=== PATIENT | male | born 1955 | race Caucasian/White ===

== ENCOUNTER 2021-10-26 08:50 | Outpatient (CLI) | payer BC, SELFPAY ==
[2021-10-26 14:30] LABS: Chloride* 105 mmol/L (96-114)
[2021-10-26 14:31] LABS: Potassium* 4.2 mmol/L (3.6-5.1); Sodium* 139 mmol/L (135-149)
[2021-10-26 14:33] LABS: Estimated Glomerular Filt Rate 84 ml/min
[2021-10-26 14:34] LABS: Blood Urea Nitrogen* 20 mg/dL (7-30); Calcium* 8.8 mg/dL (8.4-10.6); Carbon Dioxide* 30 mmol/L (20-32); Glucose* 61 mg/dL (60-115)
[2021-10-26 14:50] LABS: Alanine Aminotransferase* 22 U/L (4-50)
== END 2021-10-26 08:51 | disposition home or self-care (01) ==
PROVIDERS: PCP Family Medicine; Visit Provider Family Medicine
DX: L40.50 Arthropathic psoriasis, unspecified (principal)
CPT/HCPCS: 80048; 84460

== ENCOUNTER 2022-01-12 13:44 | Outpatient (CLI) | payer BC, SELFPAY ==
[2022-01-12 15:16] LABS: Alanine Aminotransferase* 23 U/L (4-50); Estimated Glomerular Filt Rate 84 ml/min
== END 2022-01-12 13:45 | disposition home or self-care (01) ==
PROVIDERS: PCP Family Medicine; Visit Provider Family Medicine
DX: E03.9 Hypothyroidism, unspecified (principal); L40.50 Arthropathic psoriasis, unspecified
CPT/HCPCS: 82565; 84443; 84460

== ENCOUNTER 2022-02-15 06:35 | Day surgery (SDC) | payer BC, SELFPAY ==
[2022-02-15] VITALS (12 sets, daily range): BP systolic 111–145; BP diastolic 78–91; PULSE 59–79; RESP 16–20; TEMP 36.5–37.1; O2SAT 92–99; BMI 24.7
[2022-02-15] MEDS: LACTATED RINGERS 1000 ML 1,000 ML 100 ML IV ×2 (07:00→09:04)
[2022-02-15] MEDS: ETHYL CHLORIDE 1 APPLICATION 1 APPLIC TOPICAL (07:20)
[2022-02-15] MEDS: SODIUM CHLORIDE 0.9 % (FLUSH) 10 ML SYRINGE IVF (07:20)
[2022-02-15] MEDS: CEFAZOLIN 2 GM INJ IVP (08:05)
--- NOTE | 2022-02-15 08:49 | SUR.PREOP ---
0645: verified negative covid test done at home
[2022-02-15] MEDS: BUPIVACAINE 0.25% 30 ML INJECTION (09:09)
--- NOTE | 2022-02-15 09:36 | PM.GSPRC ---
Operative Note Date of procedure: 02/15/22 Type of Procedure: Laparoscopic bilateral inguinal hernia repair with mesh Procedure Description: After discussing the risks and benefits of the procedure, the patient signed informed consent.? The operative site was marked and the patient was brought to the operating room and placed on the operating table in supine position.? Care was taken to pad the patient's pressure points.?? The patient was then intubated by anesthesia.?? The operative site was then prepped and draped in the usual sterile fashion.? A time-out was then performed. A curvilinear incision was made below the umbilicus. Dissection was carried down to subcutaneous tissue until the anterior rectus fascia was encountered. This was incised off the midline to the right. The rectus muscle fibers were then retracted exposing the posterior fascia. A port with a dissecting balloon was then introduced into the pre-preperitoneal space. This was inflated under direct vision. The balloon was deflated, removed, and a 10 mm working port was placed. The space was insuflated and a 10 mm 30-degree scope was then advanced into the space. Two 5 mm ports were] placed in the midline under direct vision. Dissection began on the right side. Sergey's ligament and the pubic bone was exposed medially. Following this, dissection was carried out laterally. An indirect defect was noted. The sac was dissected free from the cord structures using a combination of sharp and blunt dissection. A large cord lipoma was also reduced. Hemostasis was excellent, however there was a small vessel going to the cord lipoma which was clipped between 2 clips and divided with a scissor. Once the sac was completely reduced, Attention was turned to the opposite side where an indirect defect was noted and dissection was completed in the same fashion. There was also large cord lipoma that was reduced. Then, two pieces of Bard 3DMax mesh for the each side was placed into the abdomen. They were positioned with the marker pointed medially. A Tacker was used to attach the mesh medially at Sergey's ligament and 1 tack laterally with care to avoid the epigastric vessels and stay above the inguinal ligament. The mesh overlapped in the midline slightly. Once this was completed the sacs were placed on top of the mesh and the preperitoneal space desufflated under direct vision. The ports were removed. The fascia from the infraumbilical port was closed with 0 Vicryl. The skin incisions were closed with absorbable subcuticular suture. Sterile dressings were then applied. The scrotum was examined to ensure that both testicles were down. Instrument sponge and needle counts were correct at the end of the case. ? The patient tolerated the procedure well. Findings: Bilateral indirect inguinal hernias with large cord lipomas Anesthesia: LAMARA Surgeon: Karla Thomson MD Estimated blood loss (mL): 5 Condition: stable Disposition: PACU
--- NOTE | 2022-02-15 09:58 | W.ANESCHARGE ---
Anesthesia Charges Start Date/Time Anesthesia Start Date: 02/15/22 Anesthesia Start Time: 07:49 Stop Date/Time Anesthesia Stop Date: 02/15/22 Anesthesia Stop Time: 09:58 Summary Emergency: No
--- NOTE | 2022-02-15 11:14 | W.ANESCHARGE ---
Anesthesia Charges Start Date/Time Anesthesia Start Date: 02/15/22 Anesthesia Start Time: 07:49 Stop Date/Time Anesthesia Stop Date: 02/15/22 Anesthesia Stop Time: 09:58 Summary Emergency: No
== END 2022-02-15 12:00 | disposition home or self-care (01) ==
PROVIDERS: PCP Family Medicine; Visit Provider Surgery
PROC: (CPT 49650; principal; 2022-02-15 07:45)
DX: K40.20 Bilateral inguinal hernia, without obstruction or gangrene, not specified as recurrent (principal)
CPT/HCPCS: 49650; 00830; 00860; C1781; J0690; J1100; J1170; J2250; J2405; J2704; J2710; J3010; J3490; J7120

== ENCOUNTER 2022-07-06 09:26 | Outpatient (CLI) | payer OTHER, SELFPAY | END 2022-07-06 09:27 | disposition home or self-care (01) | PROVIDERS: PCP Family Medicine; Visit Provider Family Medicine | DX: E03.9 Hypothyroidism, unspecified (principal); E78.5 Hyperlipidemia, unspecified; L40.50 Arthropathic psoriasis, unspecified | CPT/HCPCS: 80048; 84439; 84443; 84460 ==

== ENCOUNTER 2023-09-24 06:15 | Day surgery (SDC) | payer MEDICARE, BC, SELFPAY ==
[2023-09-24] VITALS (14 sets, daily range): BP systolic 126–158; BP diastolic 79–100; PULSE 49–60; RESP 14–16; TEMP 36.1–36.5; O2SAT 93–98; BMI 26.5
--- OUTSIDE RECORDS SUMMARY | 2023-09-24 06:20 | XMS_ITS | Clinical Summary ---
Author Organization [employer] [facility] Address [place], [place] [address] Care Team Providers Care Credit Support Counselor Name Role Phone Votel, Saad Burroughs MD Primary Care Provider + Allergies No known active allergies Medications Medication Sig Dispensed Refills Start Date End Date Status traZODone (DESYREL) 50 mg tablet 11/08/2022 Active levothyroxine (SYNTHROID) 150 mcg tablet 11/08/2022 Active latanoprost (XALATAN) 0.005 % ophthalmic solution INSTILL 1 DROP INTO BOTH EYES AT BEDTIME 06/18/2022 Active timoloL maleate (TIMOPTIC) 0.5 % ophthalmic solution INSTILL ONE DROP IN BOTH EYES EVERY MORNING 08/18/2022 Active adalimumab (Humira,CF,) 40 mg/0.4 mL injectionIndication s:Rheumatoid arthritis, seropositive (HC) Inject every 17 days 05/16/2023 Active citalopram (CELEXA) 20 mg tabletIndications:D epression, major, single episode, moderate (HC) Take 1.5 Tablets (30 mg) by mouth every morning. 135 Tablet 1 05/16/2023 Active atorvastatin (LIPITOR) 10 mg tabletIndications:E levated cholesterol TAKE 1 TABLET DAILY 90 Tablet 3 08/01/2023 Active gabapentin (NEURONTIN) 300 mg capsuleIndications: Restless leg syndrome Take 1-2 Capsules (300-600 mg) by mouth at bedtime. 60 Capsule 3 08/01/2023 Active ferrous sulfate 325 mg delayed release tabletIndications:O ther iron deficiency anemia Take 1 Tablet (325 mg) by mouth once daily with a meal. Take with 4 oz of OJ or Cola 90 Tablet 3 09/04/2023 Active polyethylene glycol-electrolyte (GOLYTELY) 236-22.74-6.74 -5.86 gram suspensionIndicatio ns:Encounter for screening colonoscopy Drink 2 liters the day before the procedure and 2 liters 6 hours prior to procedure. 4000 mL 10/25/2023 Active cephalexin (KEFLEX) 500 mg capsuleIndications: Wound infection Take 1 Capsule (500 mg) by mouth four times daily for 7 days. 28 Capsule 2023 09/18/2023 Active Problems Problem Noted Date Diagnosed Date Rheumatoid arthritis 09/20/2023 Mixed hyperlipidemia 09/20/2023 MDD (major depressive disorder), single episode, mild 09/20/2023 RLS (restless legs syndrome) 09/20/2023 Hypothyroidism (acquired) 09/20/2023 Primary open angle glaucoma (POAG) of both eyes 09/20/2023 Encounters Date Type Department Care Team Description 09/20/2023 8:50 AM CDT Preop Visit [address] [address] Alicia Ferrera PA Preoperative Exam ([facility]-Dr. Nunez-bump on head-09/24/23) 09/20/2023 Travel 09/16/[address] [address] Julita Nunez MD 2023 3:00 PM CDT Office Visit [address] [address] Julita Nunez MD Consult (Scalp lesion) 2023 Travel 09/04/2023 10:50 AM CDT Office Visit [address] [address] RenelSaad MD Concerns (Painful bump on head, keeps coming back, x 3 months) 09/04/[address] [address] Oscar Lott MD Referral (appointment) 09/04/2023 Travel 08/16/2023 7:30 AM CDT Nurse/Clinic Staff Only [address] [place] [address] Testing (HST Download ) 08/15/2023 1:45 PM CDT Nurse/Clinic Staff Only [facility] [address] [address] Testing (HST Setup) 08/15/2023 Procedure Only [facility] [place] [address] Pacheco Cerda MD Results (HST) 08/15/2023 Travel 08/12/2023 Telephone [facility] [place] [address] Pacheco Cerda MD Questions (conflict with current appointment time 08/14) 08/01/2023 8:30 AM CDT Office Visit [facility] [place] [address] Pacheco Cerda MD Sleep Consult 08/01/2023 Travel 07/31/2023 Refill [facility] [place] [address] Saad Hernandez MD Refill Request (Atorvastatin) from Last 3 Months Immunizations Name Administration Dates Next Due COVID-19 Vaccine Spikevax (M oderna 50mcg/0.5mL) 12YO+ [id number] Formula PF 12/09/2022 Influenza Virus, Unspecified 12/22/2020 Influenza, High-dose Quadrivalent Inactivated Influenza, IIV4 01/02/2022 Pneumococcal Conj 20-valent (Prevnar 20) 023 RSV, Bivalent Vaccine Recons tituted (Abrysvo 120MCG/0.5mL) 12/09/2022 Tdap 05/18/2022 Zoster (Shingrix-RZV, recombinant) 11/07/2018, Social History Tobacco Use Types Packs/Day Years Used Date Smoking Tobacco: Never Smokeless Tobacco: Never Tobacco Cessation:Counseling Given: Yes Alcohol Use Standard Drinks/Week Comments Yes 0 (1 standard drink = 0.6 oz pur e alcohol) occ PHQ-2 Answer Date Recorded PHQ-2 TOTAL SCORE 3 05/16/2023 Social Connections Answer Date Recorded Frequency of Communication with Friends and Fami ly 0 09/20/2023 Financial Resource Strain Answer Date R ecorded Difficulty of Paying Living Expenses 3 09/20/2023 Difficulty of Paying Living Expenses Not on file 09/20/2023 Food Insecurity Answer Date Recorded Worried About Running Out of Food in the Last Ye ar 1 09/20/2023 Transportation Needs Answer Date Record ed Lack of Transportation (Medical) 1 09/20/2023 Housing Stability Answer Date Recorded Unable to Pay for Housing in the Last Year 1 09/20/2023 Sex and Gender Information Value Date Recorded Sex Assigned at Not on file Gender Identity Not on file Sexual Orientation Not on file Obstetrics History Last Filed Vital Signs Vital Sign Reading Time Taken Comments Blood Pressure 137/83 09/20/2023 8:53 AM CDT Pulse 53 09/20/2023 8:53 AM CDT Temperature 36.7 ??C (98 ??F) 05/16/2023 3:18 PM CDT Respiratory Rate - - Oxygen Saturation 95% 09/20/2023 8:53 AM CDT Inhaled Oxygen Concentration - - Weight 81.6 kg (180 lb) 09/20/2023 8:53 AM CDT Height 177.5 cm (5' 9.88) 09/20/2023 8:53 AM CD T Body Mass Index 25.91 09/20/2023 8:53 AM CDT Plan of Treatment Upcoming Encounters Date Type Department Care Team (Late st Contact Info) Description 09/24/2023 8:00 AM CDT Office Visit [facility] [address] [place] [address] Julita Nunez MD [address] [place] [address] 10/29/2023 9:30 AM CDT Office Visit [facility] [address] [place] [address] Benson Dickerson MD [address] [place] [address] 11/06/2023 9:00 AM CDT Office Visit [address] [place] [address] Pacheco Cerda MD [address] [place] [address] 11/12/2023 8:20 AM CDT Office Visit [facility] [address] [place] [address] Saad Hernandez MD [address] [place] [address] 11/29/2023 11:45 AM CDT Office Visit [facility] [address] [place] [phone] Oscar Lott MD [address] [place] [address] Health Maintenance Due Date Last Done Comments Hepatitis C screening for ag e 18-79 09/12/1973 Colonoscopy through age 75 2002 COVID-19 vaccine series ( season) 2023 12/09/2022, 01/02/2022, 07/06/2021, Additional history exists Influenza for age 65+ 11/03/2023 12/09/2022 , 01/02/2022, 12/22/2020 Depression screening for age 12+ 05/15/2024 05/16/19 Medicare Wellness for age 65+ 05/16/2024 05/16/2023 BMI (ht and wt on same day) for age 18+ 09/19/2024 09/20/2023, 09/04/2023, 08/01/2023, Additional history exists Lipids for age 45-75 05/15/2028 05/16/2023 Tetanus booster 05/18/2032 05/18/2022 Zoster (shingles) series for age 50+ Completed 11/07/2018, 06/27/2018 Tdap Completed 05/18/2022 Pneumococcal series for age 65+ Completed Procedures Procedure Name Priority Date/Time Associated Diagnosis Comments BASIC METABOLIC PANEL Routine 09/20/2023 9:42 AM CDT Pre-op exam HEMOGLOBIN Routine 09/20/2023 9:42 AM CDT Pre-op exam PATH TISSUE EXAM Routine 2023 3:27 PM CDT Neoplasm of uncertain behavior HOME SLEEP TEST TYPE 3 PORTABLE Routine 08/15/2023 11:59 PM CDT AMELIA (obstructive sleep apnea) SEDIMENTATION RATE Routine 08/01/2023 9: 36 AM CDT Psoriatic arthritis (HC) C-REACTIVE PROTEIN Routine 08/01/2023 9: 36 AM CDT Psoriatic arthritis (HC) IRON PLUS IRON BINDING CAP Routine 08/01/2023 9:36 AM CDT Low iron LIPID PANEL W REFLEX MEASURED LDL Routine 05/16/2023 4:21 PM CDT Screening cholesterol level from Last 3 Months or Most Recently Relevant to Health Maintenance Results * HEMOGLOBIN (09/20/2023 9:42 AM CDT) HEMOGLOBIN 14.7 13.5 - 17.5 g/dL 09/20/2023 9:46 AM CDT [facility] MCV 88 80 - 100 fL 09/20/2023 9:46 AM CDT [facility] Blood BLOOD SPECIMEN / Unknown Venipuncture / Unknown 09/20/2023 9:42 AM CDT 09/20/2023 9:43 AM CDT Alicia ELLIS HEMATOLOGY [facility] [address] [place] [address], * (ABNORMAL) BASIC METABOLIC PANEL (09/20/2023 9:42 AM CDT) SODIUM 141 136 - 145 mmol/L 09/20/2023 3:50 PM CDT [facility] POTASSIUM 4.8 3.5 - 5.1 mmol/L 09/20/2023 3:50 PM CDT [facility] CHLORIDE 104 98 - 107 mmol/L 09/20/2023 3:50 PM CDT [facility] CO2,TOTAL 28 22 - 29 mmol/L 09/20/2023 3:50 PM CDT [facility] ANION GAP 9 5 - 18 09/20/2023 3:50 PM CDT [facility] GLUCOSE 93 70 - 99 mg/dL 09/20/2023 3:50 PM CDT [facility] CALCIUM 8.8 8.8 - 10.2 mg/dL 09/20/2023 3:50 PM CDT [facility] BUN 14 8 - 23 mg/dL 09/20/2023 3:50 PM CDT [facility] CREATININE 1.01 0.70 - 1.20 mg/dL 09/20/2023 3:50 PM CDT [facility] BUN/CREAT RATIO 14 10 - 20 3:50 PM CDT [facility] eGFR 82(L) >90 mL/min/1.7 3m2 09/20/2023 3:50 PM CDT [facility] Comment:As of 2021, eG FR is calculated by the CKD-EPI creatinine equation without race adjustment. ??eGFR can be influenced by muscle mass, exercise, and diet. ??The reported eGFR is an estimation only and is only applicable if the renal function is stable. Blood BLOOD SPECIMEN / Unknown Venipuncture / Unknown 09/20/2023 9:42 AM CDT 09/20/2023 9:43 AM CDT Alicia ELLIS [facility] [address] [place] [address], * PATH TISSUE EXAM (2023 3:27 PM CDT) Case Report Pathology Report ?Case: [id number] ? Authorizing Provider: ??Julita Nunez MD ??Collected: ? 2023 1527 ? Ordering Location: ? [facility] ?? Received: ?2023 1549 ? Clinic ? Pathologist: ? Jose Esposito MD ? Specimen: ?Scalp, punch biopsy scalp lesion ? 09/13/2023 1:46 PM CDT [facility]ORAT[facility]-C ENTRAL LABORATORY Final Diagnosis SKIN, SCALP, BIOPSY: 1. 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 b. Perineural invasion: Absent ?? c. Margin status: POSITIVE ??(deep and peripheral) 09/13/2023 1:46 PM CDT [facility] LABORATORY-C ENTRAL LABORATORY Clinical Information Punch biopsy scalp lesion. 09/13/2023 1:46 PM CDT [facility] Gross Description A) Received in formalin, labeled with the patient's name and scalp lesion punch BX, is a 0.3 x 0.3 cm skin punch biopsy. The skin surface is remarkable for a 0.1 x 0.1 cm perez-white flat lesion. ??The specimen is inked green, left intact and entirely submitted in one cassette. ??Also submitted is a 0.7 x 0.3 x 0.2 cm aggregate of perez-white to red-brown friable tissue which is entirely submitted in a second cassette. EVM 09/12/2023 ?? 09/13/2023 1:46 PM CDT [facility] Microscopic Description The final diagnosis is based on microscopic examination of appropriate sections of all specimens. Sections show a hyperkeratotic surface epithelium with significant cytologic atypia, marked lack of polarization, and mitotic activity. ??Multiple deeper levels were utilized for evaluation. ??There is invasion into the underlying connective tissue. The presence of ??green ink is confirmed on tissue sections. 09/13/2023 1:46 PM CDT [facility] Additional Information Interpreted at [facility] - [address] [place] [address] [address] [address] 09/13/2023 1:46 PM CDT [facility] Other (Scalp) Non-Blood / Unknown 2023 3:27 PM CDT 2023 3:49 PM CDT Julita Nunez MD PATHOLOGY/CYTOLO GY [facility] [address] [place] [address], * HOME SLEEP TEST TYPE 3 PORTABLE (08/15/2023 11:59 PM CDT) Narrative Pacheco Cerda MD - 08/15/2023 11:59 PM CDT Pacheco Cerda MD ? 08/22/2023 10:59 AM Home Sleep Test Name: ??Truman Brock Location: ??[facility] Study notes: This is a single night home sleep apnea test. The study is performed in the context of a clinical suspicion for sleep apnea. Truman Brock ( 1955) is studied using a T3 Device using nasal pressure transducer, thoracoabdominal respiratory impedance plethysmography belts, pulse oximetry, snore microphone and actigraphy for body position. ??The study is scored by a RPSGT and interpreted by a Diplomate of the [place] [employer]. ??An [id number] review of the data has been performed by the interpreting physician. Scored following the most current version of the AASM Manual for the Scoring of Sleep and Associated Events. Respiratory Event Index (SHANAE) ??Oxygen Desaturation Index (DIANE) REI4% ??5.9 ??ODI4%: ??5.6 Supine SHANAE: 16.5 ??ODI3%: ??5.7 Lateral SHANAE: 0.4 ??Zan Saturation 84 % ?? Time Below 88% 9.5 ??minutes ?? Weight: Wt Readings from Last 1 Encounters: 08/01/23 82.4 kg (181 lb 9.6 oz) Other data: Recording Duration: 480.0 minutes Time in Bed: ??473.4 minutes Estimated sleep efficiency [%]: 98 % Oximeter Quality: 99.3 % Flow Quality: 100.0 % RIP Quality: 100.0 % Supine time: 160.2 minutes Average SpO2: 93.1 % Pulse Average: 57.7 bpm Additional Comments: None IMPRESSION: Obstructive Sleep Apnea (327.23, G47.33) RECOMMENDATIONS: - Mild sleep apnea is discovered- it is positional with all events on his back. ??If there is low clinical suspicion of sleep apnea, this could be a false positive. ??Polysomnography could be considered. - Mild sleep apnea only needs treatment in the presence of attributable sleepiness. ??In the absence of symptoms, treatment may not be indicated. ??Clinical correlation is recommended. - Treatment options for mild sleep apnea include CPAP, a mandibular advancement device, lifestyle modifications such as weight loss, sedative/alcohol avoidance, avoiding supine sleep and surgical therapies can be considered in highly selected patients. - Treatment for obstructive sleep apnea is recommended and CPAP would generally be considered first-line therapy for this severity of sleep apnea. ??Consider auto-titrating CPAP 5-20 cm. - Follow-up with a provider to discuss results is recommended. - Patients should be advised to avoid critical tasks, such as driving, whenever drowsy. - Patients should try to achieve at least 7-8 hours of sleep on a consistent basis. - The SHANAE is a surrogate for AHI. ??For reimbursement and/or prior authorization purposes, it would be appropriate to list the SHANAE as an AHI when the latter is accepted, but not the former. Pacheco Jangomate, Board of Sleep Medicine Recording Information Recording Date: 08/15/2023 ??Analysis Start Time: 9:06 PM Recording Tags: ?? Analysis Stop Time: 4:59 AM Device Type: T3S ??Analysis Duration (TRT): 7h 53m ?? Est. Total Sleep Time: 7h 51m Position and Analysis Time Duration Percentage Supine (in TST): 160.2 m 34 % Non-Supine (in TST): 311.3 m 66 % Upright (in TRT): 1.8 m 0.4 % Movement (in TST): 9.4 m 2 % Invalid Data (Excluded): 0 m 0 % Respiratory Indices Index ?? Total ??Supine ??Non-supine Count Apneas + Hypopneas (AH): 5.9 /h 16.5 /h 0.4 /h 46 Apneas: 2.2 /h 5.6 /h 0.4 /h 17 Obstructive (OA): 2.2 /h 5.6 /h 0.4 /h 17 Mixed (MA): 0 /h 0 /h 0 /h 0 Central (CA): 0 /h 0 /h 0 /h 0 Hypopneas: ??3.7 /h 10.9 /h 0 /h 29 Respiration Rate (per m): 16.3 /m 16.8 /m 16.1 /m ?? Percentage of Sleep Duration Snore: 35.2 % 56.6 % 24.2 % 166 m Flow Limitation: 0 % 0 % 0 % 0 m Average Snore Volume 67.5 dB Percent of time greater than 80dB: Percent of 12 % Oxygen Saturation (SpO2) Total Supine ?Non-supine Oxygen Desaturation Index (DIANE): 5.7 /h ??15.7 /h 0.6 /h Average SpO2: 93.1 % ??92.3 % 93.5 % Minimum SpO2: 84 % ??84 % 85 % SpO2 Duration < 90% 3.2 % (15.2m) 9.3 % 0.1 % SpO2 Duration ? 88% 2 % (9.5m) 5.8 % 0.1 % Pulse in TST ?? Quality ?? Average: 57.7 bpm Oximeter: 99.3 % Maximum: 101 bpm Nasal Cannula: 100 % Minimum: 48 bpm Abdomen RIP: 100 % Duration < 40 bpm: 0 m Thorax RIP: 100 % Duration > 100 bpm: 0 m ? Pacheco Cerda MD SLEEP CENTER * SEDIMENTATION RATE (08/01/2023 9:36 AM CDT) SEDIMENTATION RATE 6 <20 mm/hr 2023 4:09 PM CDT [facility] Blood BLOOD SPECIMEN / Unknown Venipuncture / Unknown 08/01/2023 9:36 AM CDT 08/01/2023 9:37 AM CDT Pacheco Cerda MD HEMATOLOGY [facility] [address] [place] [address], * (ABNORMAL) IRON PLUS IRON BINDING CAP (08/01/2023 9:36 AM CDT) IRON 52(L) 61 - 157 ug/dL 08/01/2023 7:13 PM CDT [facility] UIBC (UNSATURATED) 318 112 - 347 ug/dL 08/01/2023 7:13 PM CDT [facility] IRON BINDING CAPACITY 370 250 - 400 ug/dL 08/01/2023 7:13 PM CDT [facility] IRON,% SATURATION 14 14 - 50 % 08/01/2023 7:13 PM CDT [facility] Blood BLOOD SPECIMEN / Unknown Venipuncture / Unknown 08/01/2023 9:36 AM CDT 08/01/2023 9:37 AM CDT Pacheco Cerda MD CHEMISTRY Performing Organization Address City/[facility]/ZIP Co de Phone Number [facility] [address] [place] [address], * C-REACTIVE PROTEIN (08/01/2023 9:36 AM CDT) C-REACTIVE PROTEIN <0.3 <0.5 mg/dL 08/01/2023 7:14 PM CDT [facility] Blood BLOOD SPECIMEN / Unknown Venipuncture / Unknown 08/01/2023 9:36 AM CDT 08/01/2023 9:37 AM CDT Pacheco Cerda MD CHEMISTRY Performing Organization Address [facility] Co de Phone Number [facility] [address] [place] [address], * LIPID PANEL W REFLEX MEASURED LDL (05/16/2023 4:21 PM CDT) CHOLESTEROL,TOTAL 155 100 - 199 mg/dL 05/17/2023 2:57 PM CDT [facility] Comment: Cholesterol, Total Reference Ranges Desirable <200 mg/dL Borderline 200-239 mg/dL High >=240 mg/dL TRIGLYCERIDES 57 <150 mg/dL 05/17/2023 2:57 PM CDT [facility] HDL CHOLESTEROL 71 >40 mg/dL 2:57 PM CDT [facility] NON-HDL CHOLESTEROL 84 <145 mg/dl 05/17/2023 2:57 PM CDT [facility] CHOL/HDL RATIO 2.18 <4.50 05/17/2023 2:57 PM CDT [facility] LDL CHOLESTEROL 73 <=130 mg/dL 05/17/2023 2:57 PM CDT [facility] VLDL CHOLESTEROL 11 <=30 mg/dL 05/17/2023 2:57 PM CDT [facility] PROVIDER ORDERED STATUS RANDOM 05/17/2023 2:57 PM CDT [facility] Blood BLOOD SPECIMEN / Unknown Venipuncture / Unknown 05/16/2023 4:21 PM CDT 05/16/2023 4:22 PM CDT Saad Hernandez MD CHEMISTRY [facility] [address] [place] [id number], from Last 3 Months or Most Recently Relevant to Health Maintenance Care Teams Credit Support Counselor Relationship Specialty Start Date End Date Saad Hernandez MD [address] [place] [address] PCP - General Family Practice 08/01/23
[2023-09-24] MEDS: LACTATED RINGERS 1000 ML 1,000 ML 100 ML IV (06:45)
[2023-09-24] MEDS: SODIUM CHLORIDE 0.9 % (FLUSH) 10 ML SYRINGE IVF (06:45)
[2023-09-24] MEDS: CEFAZOLIN 2 GM INJ IVP (07:58)
--- NOTE | 2023-09-24 08:19 | W.ANESCHARGE ---
Anesthesia Charges Start Date/Time Anesthesia Start Date: 09/24/23 Anesthesia Start Time: 07:42 Stop Date/Time Anesthesia Stop Date: 09/24/23 Anesthesia Stop Time: 10:39
[2023-09-24] MEDS: BUPIVACAINE 0.25% 30 ML 10 ML INJECTION (09:54)
--- NOTE | 2023-09-24 10:44 | W.ANESCHARGE ---
Anesthesia Charges Start Date/Time Anesthesia Start Date: 09/24/23 Anesthesia Start Time: 07:42 Stop Date/Time Anesthesia Stop Date: 09/24/23 Anesthesia Stop Time: 10:39
[2023-09-24] MEDS: LACTATED RINGERS 1000 ML 1,000 ML 50 ML IV (10:54)
[2023-09-24] MEDS: ACETAMINOPHEN 325 MG TABLET 650 MG PO (12:12)
--- NOTE | 2023-09-24 12:26 | P.GSOP_ITS ---
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 Wide local excision invasive squamous cell carcinoma of the scalp 2. Full-thickness skin graft Indications: Patient is a 68-year-old male who presented to clinic with his a large protrudin g lesion of the scalp. A biopsy was obtained with confirmed invasive squamous cell carcinoma. Recommendations were for wide local excision. Risks and benefits of the procedure were discussed at length with the patient. Risks included, but were not limited to: Bleeding, infection, risk of damage to surrounding structures and possible need for additional procedures in the setting of positive margins. Additionally, I reviewed with the patient the risk of incision dehiscence resulting in a wound, as well as the possible need of a skin graft for closure. All questions and concerns were addressed with patient agreeing to proceed. Procedure Description: After discussing the risks and benefits of the procedure, the patient signed informed consent.? The operative site was marked and the patient was brought to the operating room and placed on the operating table in supine position.? Care was taken to pad the patient's pressure points.?? The patient was then intubated by anesthesia.?? The operative site was then prepped and draped in the usual sterile fashion.? A time-out was then performed. The protruding squamous cell carcinoma was present on top of the scalp and measured 3 cm in diameter. A ruler was used to racheal out 5 mm margins circumferentially. A circular incision was made around the lesion with a 15 blade scalpel. Dissection was carried down to subcutaneous tissue. The lesion was removed in its entirety and included a rim of normal appearing tissue. Hemostasis was assured with electrocautery. The resulting circular defect measured 5 cm in diameter. Due to the size of the defect a combined V incision was created. This consisted of incising a V shape at 45 degrees of angulation medial and lateral along the transverse axis. The surrounding skin edges were undermined circumferentially approximately 5 cm. All bleeding was controlled with cautery and pressure. The tissue was very difficult to mobilize due to d ecreased elasticity of the dermis. The incision was then closed in layers with deep 2-0 Vicryl interrupted stitches. The skin edges were brought together with running 2 0 nylon suture. Due to tension on the incision the central aspect was unable to be closed completely, so the decision was made for a full-thickness skin graft. The resulting defect measured 2 x 3 cm in size. An incision was marked posterior to the right ear. Using a 15 blade scalpel a 4 cm elliptical piece of tissue was excised. The epidermis, dermis and a small amount of underlying subcutaneous fat was harvested. The incision was then closed in layers with interrupted 3 0 Vicryl and running 4-0 Monocryl stitch. Steri-Strips were placed over the incision site. The skin graft was dissected further on the back table with sharp removal of all underlying subcutaneous fat. The graft was meshed in several areas with a scalpel to allow for adequate drainage. The skin was placed over the scalp wound and secured in place circumferentially with interrupted 4-0 chromic. The graft covered the entire defect. A few interrupted 4-0 chromic sutures were used to secure the graft to the wound bed. A pressure dressing was then created with Xeroform, Hydreafera blue and a 4x4 dressing. ? The patient was then woken and transported to the recovery area in stable condition. ? The patient tolerated the procedure well. Findings: 3 cm protruding lesion of the scalp, consistent with invasive squamous cell carcinoma. Wide local excision with closure via combined V incision and full- thickness skin graft. Anesthesia: GETA and local Surgeon: Julita Nunez MD Estimated blood loss (mL): 50 Additional Specimen Information: Scalp lesion. Condition: stable Disposition: PACU
--- NOTE | 2023-09-24 12:37 | SUR.PHASEII ---
Before discharge patient's dressing peeling up around edges again from PACU reinforcement. Surgeon notified. Non sterile dressing change by Yessenia Brito RN done in SDS before discharge.
== END 2023-09-24 12:35 | disposition home or self-care (01) ==
PROVIDERS: PCP Family Medicine; Visit Provider Surgery
PROC: (CPT 11623; principal; 2023-09-24 07:30)
DX: C44.42 Squamous cell carcinoma of skin of scalp and neck (principal)
CPT/HCPCS: 11623; 15220; 00300; 88305; A9270; J0665; J0690; J1100; J1885; J2405; J2704; J3010; J7120

== ENCOUNTER 2023-11-29 11:39 | Outpatient (CLI) | payer MEDICARE, BC, SELFPAY ==
--- OUTSIDE RECORDS SUMMARY | 2023-11-29 11:42 | XMS_ITS | Clinical Summary ---
Author Organization [facility] Address [place], [place] [address] Care Team Providers Care Slot Tag Inserter Name Role Phone Votel, Saad Burroughs MD Primary Care Provider + Allergies No known active allergies Medications Medication Sig Dispensed Refills Start Date End Date Status traZODone (DESYREL) 50 mg tablet 11/08/2022 Active latanoprost (XALATAN) 0.005 % ophthalmic solution INSTILL 1 DROP INTO BOTH EYES AT BEDTIME 06/18/2022 Active timoloL maleate (TIMOPTIC) 0.5 % ophthalmic solution INSTILL ONE DROP IN BOTH EYES EVERY MORNING 08/18/2022 Active adalimumab (Humira,CF,) 40 mg/0.4 mL injectionIndications :Rheumatoid arthritis, seropositive (HC) Inject every 17 days 05/16/2023 Active citalopram (CELEXA) 20 mg tabletIndications:De pression, major, single episode, moderate (HC) Take 1.5 Tablets (30 mg) by mouth every morning. 135 Tablet 1 05/16/2023 Active atorvastatin (LIPITOR) 10 mg tabletIndications:El evated cholesterol TAKE 1 TABLET DAILY 90 Tablet 3 08/01/2023 Active gabapentin (NEURONTIN) 300 mg capsuleIndications:R estless leg syndrome Take 1-2 Capsules (300-600 mg) by mouth at bedtime. 60 Capsule 3 08/01/2023 Active ferrous sulfate 325 mg delayed release tabletIndications:Ot her iron deficiency anemia Take 1 Tablet (325 mg) by mouth once daily with a meal. Take with 4 oz of OJ or Cola 90 Tablet 3 09/04/2023 Active polyethylene glycol-electrolyte (GOLYTELY) 236-22.74-6.74 -5.86 gram suspensionIndication s:Encounter for screening colonoscopy Drink 2 liters the day before the procedure and 2 liters 6 hours prior to procedure. 4000 mL 10/25/2023 Active levothyroxine (SYNTHROID) 150 mcg tabletIndications:Hy pothyroidism (acquired) Take 1 Tablet (150 mcg) by mouth once daily. 90 Tablet 1 09/30/2023 Active CPAPIndications:AMELIA (obstructive sleep apnea) RESMED CPAP (E0601) machine for home use at pressure: 5-15cmw, Choice of mask (A7030 or A7034) w/full face cushion (A7031) x1/mo, nasal cushion (A7032) x2/mo, or nasal pillows (A7033) x 2/mo; Length of Need: 99 months; Frequency of use: Daily 1 Each 11 11/07/2023 Active fluorouracil (Efudex) 5 % creamIndications:Ski n cancer,Actinic keratosis Apply topically to affected area(s) two times daily. 40 g 1 11/26/2023 Active Active Problems Problem Noted Date Diagnosed Date Skin cancer 11/26/2023 Overview (11/26/2023): 09/11/23: SKIN, SCALP, INVASIVE SQUAMOUS CELL CARCINOMA: Excised by general surgery on 09/24/23 History of psoriasis 11/25/2023 intermediate current use of immunosuppressive drug 11/25/2023 AMELIA 08/15/2023 AHI- 6 11/06/2023 Mixed hyperlipidemia 09/20/2023 MDD (major depressive disorder), single episode, mild 09/20/2023 RLS (restless legs syndrome) 09/20/2023 Hypothyroidism (acquired) 09/20/2023 Primary open angle glaucoma (POAG) of both eyes 09/20/2023 Psoriatic arthritis Resolved Problems Problem Noted Date Diagnosed Date Resolved Date Rheumatoid arthritis 09/20/2023 024 Rheumatoid arthritis 024 Psoriatic arthritis 11/12/19 Encounters Date Type Department Care Team Description 11/26/2023 2:10 PM CDT Office Visit [facility] [address] [address] Breanna Gilmore PA Derm Problem 11/26/2023 Travel 11/25/2023 11:50 AM CDT Ancillary Procedure [facility] [address] [facility] [address] [place] [address] 11/25/2023 11:45 AM CDT Ancillary Procedure [facility] [address] [facility] [address] [place] [address] 11/25/2023 10:30 AM CDT Office Visit [facility] [address] [place] [address] Nicolas Zhao MD Consult 11/25/2023 Travel 11/15/2023 Orders Only [facility] [address] [place] [address] Oscar Lott MD <No scans attached> 11/12/2023 8:20 AM CDT Office Visit [facility] [address] [place] [address] Saad Hernandez MD Preoperative Exam (Colonoscopy, [place], 11/29/23, [place]) 11/12/2023 Travel 11/06/2023 9:00 AM CDT Office Visit [facility] [address] [place] [address] Pacheco Cerda MD Sleep Follow-up 11/06/2023 Travel 11/03/2023 Travel 10/30/2023 2:00 PM CDT Office Visit [facility] [address] [place] [address] Julita Nunez MD Post-op (Scalp lesion with skin graft) 10/30/2023 Travel 09/27/2023 Refill [facility] [address] [place] [address] Saad Hernandez MD Refill Request (Levothyroxine) 09/24/2023 8:00 AM CDT Office Visit [facility] [address] [place] [address] Julita Nunez MD 09/24/2023 Orders Only [facility] Scanner 1 scan: (1-Ord) KAPAA, WIDE LOCAL EXCISION INVASIVE SQUAMOUS CELL CARCINOMA OF SCALP, 09/24/2023 09/24/2023 Lab Requisition [facility] [phone] Unknown, Doctor 09/20/2023 8:50 AM CDT Preop Visit [facility] [address] [place] [address] Alicia Ferrera PA Preoperative Exam ([facility]-Dr. Nunez-bump on head-09/24/23) 09/20/2023 Travel 09/16/2023 Telephone [facility] [address] [place] [address] Julita Nunez MD 2023 3:00 PM CDT Office Visit [facility] [address] [place] [address] Julita Nunez MD Consult (Scalp lesion) 2023 Travel 09/04/2023 10:50 AM CDT Office Visit [facility] [address] [place] [address] Saad Hernandez MD Concerns (Painful bump on head, keeps coming back, x 3 months) 09/04/2023 Telephone [facility] [address] [place] [address] Oscar Lott MD Referral (appointment) 09/04/2023 Travel from Last 3 Months Immunizations Name Administration Dates Next Due COVID-19 VACCINE SPIKEVAX (M ODERNA 50MCG/0.5ML) 12YO+ PFS 12/09/2022 Influenza Virus, Unspecified 12/22/2020 Influenza, High-dose [...] Sign Reading Time Taken Comments Blood Pressure 110/70 11/25/2023 10:28 AM CDT Pulse 51 11/25/2023 10:28 AM CDT Temperature 36.7 ??C (98 ??F) 11/12/2023 8:26 AM CDT Respiratory Rate - - Oxygen Saturation 98% 11/25/2023 10:28 AM CDT Inhaled Oxygen Concentration - - Weight 81.8 kg (180 lb 4.8 oz) 11/25/2023 10:28 AM CDT Height 177.8 cm (5' 10) 11/25/2023 10:28 AM CDT Body Mass Index 25.87 11/25/2023 10:28 AM CDT Plan of Treatment Upcoming Encounters Date Type Department Care Team (Late st Contact Info) Description 11/29/2023 11:45 AM CDT Office Visit [facility] [address] [place] [phone] Oscar Lott MD [address] [place] [address] Arrived 03/02/2024 8:50 AM ELECTRICAL ENGINEER Office Visit [facility] [address] [place] [address] [place] [address] [place] [address] [place] [address] 03/24/2024 9:30 AM ELECTRICAL ENGINEER Office Visit [facility] [address] [place], [place] [id number] [place] [address] [place] [address] [place] [address] Health Maintenance Due Date Last Done Comments Colonoscopy through age 75 2002 COVID-19 vaccine series (2023- season) 2023 12/09/2022, 01/02/2022, 07/06/2021, Additional history exists Influenza for age 65+ 11/03/2023 12/09/2022 , 01/02/2022, 12/22/2020 Depression screening for age 12+ 05/15/2024 05/16/19 Medicare Wellness for age 65+ 05/16/2024 05/16/2023 BMI (ht and wt on same day) for age 18+ 11/24/2024 11/25/2023, 11/12/2023, 11/06/2023, Additional history exists Lipids for age 45-75 05/15/2028 05/16/2023 Tetanus booster 05/18/2032 05/18/2022 Zoster (shingles) series for age 50+ Completed 11/07/2018, 06/27/2018 Tdap Completed 05/18/2022 Pneumococcal series for age 65+ Completed Hepatitis C screening for ag e 18-79 Completed 11/25/2023 Procedures Procedure Name Priority Date/Time Associated Diagnosis Comments XR HAND 3 VIEWS BILATERAL Routine 11/25/2023 11:53 AM CDT Psoriatic arthritis (HC) History of psoriasis XR FOOT 2 VIEWS STANDING BILATERAL Routine 11/25/2023 11:48 AM CDT Psoriatic arthritis (HC) CBC WITH AUTO DIFFERENTIAL Routine 11/25/2023 12:00 AM CDT ANTI HBC Routine 11/25/2023 12:00 AM CDT Psoriatic arthritis (HC) long term acute care registered nurse current use of immunosuppressive drug Encounter for screening for other viral diseases HBSAG (HBS) Routine 11/25/2023 12:00 AM CDT Psoriatic arthritis (HC) long term acute care registered nurse current use of immunosuppressive drug Encounter for screening for other viral diseases ANTI HCV Routine 11/25/2023 12:00 AM CDT Psoriatic arthritis (HC) long term acute care registered nurse current use of immunosuppressive drug HEPATITIS B CORE ANTIBODY (IGM) (QUEST) Routine 11/25/2023 12:00 AM CDT Psoriatic arthritis (HC) long term acute care registered nurse current use of immunosuppressive drug CYCLIC CITRULLINE PEPTIDE Routine 11/25/2023 12:00 AM CDT Psoriatic arthritis (HC) RA QUANTITATIVE Routine 11/25/2023 12:00 AM CDT Psoriatic arthritis (HC) SEDIMENTATION RATE Routine 11/25/2023 12 :00 AM CDT Psoriatic arthritis (HC) C-REACTIVE PROTEIN Routine 11/25/2023 12 :00 AM CDT Psoriatic arthritis (HC) COMP METABOLIC PANEL Routine 11/25/2023 12:00 AM CDT Psoriatic arthritis (HC) CBC WITH AUTO DIFFERENTIAL Routine 11/12/2023 8:22 AM CDT Pre-op exam CBC WITH AUTO DIFFERENTIAL Routine 11/12/2023 8:22 AM CDT Pre-op exam PATH TISSUE EXAM Routine 09/24/2023 10:1 6 AM CDT LAB TRACKING EVENT Routine 09/24/2023 9: 00 AM CDT SCAN-OPERATIVE/PROCE DURE REPORT 09/24/2023 12:00 AM CDT BASIC METABOLIC PANEL Routine 09/20/2023 9:42 AM CDT Pre-op exam HEMOGLOBIN Routine 09/20/2023 9:42 AM CDT Pre-op exam PATH TISSUE EXAM Routine 2023 3:27 PM CDT Neoplasm of uncertain behavior LIPID PANEL W REFLEX MEASURED LDL Routine 05/16/2023 4:21 PM CDT Screening cholesterol level from Last 3 Months or Most Recently Relevant to Health Maintenance Results * XR HAND 3 VIEWS BILATERAL (11/25/2023 11:53 AM CDT) Anatomical Region Laterality Modality HAND L, HAND R, HANDS Digital Ra diography 11/26/2023 1:24 PM CDT Narrative 11/26/2023 1:24 PM CDT For Patients: ??As a result of the Cures Act, medical imaging exams and procedure reports are released immediately into your electronic medical record. ??You may view this report before your referring provider. ??If you have questions, please contact your health care provider. Indication: Psoriatic arthritis Technique: Three views of bilateral hands Comparison: None Findings: Normal alignment and mineralization without acute fracture, dislocation or suspicious bony. Joints are preserved/no erosions. Soft tissues are unremarkable. Impression: Negative study. Dictated by Brayden Guy MD @ 11/26/2023 1:24:35 PM (Electronically Signed) Procedure Note Brayden Guy MD - 11/26/2023 For Patients: As a result of the Cures Act, medical imagingexams and procedure reports are released immediately into your electronicmedical record. You may view this report before your referring provider.If you have questions, please contact your health care provider. Indication: Psoriatic arthritis Technique: Three views of bilateral hands Comparison: None Findings: Normal alignment and mineralization without acute fracture, dislocation orsuspicious bony. Joints are preserved/no erosions. Soft tissues areunremarkable. Impression: Negative study. Dictated by Brayden Guy MD @ 11/26/2023 1:24:35 PM (Electronically Signed) Nicolas WILKINS * XR FOOT 2 VIEWS STANDING BILATERAL (11/25/2023 11:48 AM CDT) Anatomical Region Laterality Modality KNEES Digital Radiogra phy 11/26/2023 1:15 PM CDT Narrative 11/26/2023 1:15 PM CDT For Patients: ??As a result of the Cures Act, medical imaging exams and procedure reports are released immediately into your electronic medical record. ??You may view this report before your referring provider. ??If you have questions, please contact your health care provider. Indication: Psoriatic arthritis Technique: Two views of bilateral feet Comparison: None Findings: Normal alignment and mineralization without acute fracture, dislocation or suspicious bony lesion. Joints are preserved. 5 millimeter right plantar calcaneal spur is noted. Soft tissues are unremarkable. Impression: Negative study Dictated by Brayden Guy MD @ 11/26/2023 1:15:26 PM (Electronically Signed) Procedure Note Brayden Guy MD - 11/26/2023 For Patients: As a result of the Cures Act, medical imagingexams and procedure reports are released immediately into your electronicmedical record. You may view this report before your referring provider.If you have questions, please contact your health care provider. Indication: Psoriatic arthritis Technique: Two views of bilateral feet Comparison: None Findings: Normal alignment and mineralization without acute fracture, dislocation orsuspicious bony lesion. Joints are preserved. 5 millimeter right plantarcalcaneal spur is noted. Soft tissues are unremarkable. Impression: Negative study Dictated by Brayden Guy MD @ 11/26/2023 1:15:26 PM (Electronically Signed) Nicolas WILKINS * HEPATITIS B CORE ANTIBODY (IGM) (QUEST) (11/25/2023 12:00 AM CDT) HEPATITIS B CORE ANTIBODY (IGM) NON-REACTI VE NON-REACTI VE [facility] Comment: For additional information, please refer to http://education.Leevia/faq/GFP574 (This link is being provided for informational/ educational purposes only.) Blood BLOOD SPECIMEN / Unknown 11/25/2023 11/25/2023 11:55 AM CDT Nicolas Zhao MD SEND OUTS Performing Organization Address City/[facility]/ZIP Co de Phone Number Identification International [facility] [address] [place] [address], [place] [phone] [facility] [address] [place] [address] * SEDIMENTATION RATE (11/25/2023 12:00 AM CDT) SED RATE BY MODIFIED FRACISCO 6 < OR = 20 mm/h [facility] Blood BLOOD SPECIMEN / Unknown 11/25/2023 11/25/2023 11:55 AM CDT Nicolas Zhao MD HEMATOLOGY Performing Organization Address [facility] Co de Phone Number [employer] International [facility] [address] [place] [address], [place] [phone] [facility] [address] [place] [address] * CBC WITH AUTO DIFFERENTIAL (11/25/2023 12:00 AM CDT) Only the most recent of2 resultswithin the time period is included. WHITE BLOOD CELL COUNT 6.5 3.8 - 10.8 Thousand/u L [facility] RED BLOOD CELL COUNT 4.74 4.20 - 5.80 Million/uL [facility] HEMOGLOBIN 14.7 13.2 - 17.1 g/dL [facility] HEMATOCRIT 43.8 38.5 - 50.0 % [facility] MCV 92.4 80.0 - 100.0 fL [facility] MCH 31.0 27.0 - 33.0 pg [facility] MCHC 33.6 32.0 - 36.0 g/dL [facility] RDW 12.7 11.0 - 15.0 % [facility] PLATELET COUNT 189 140 - 400 Thousand/u L [facility] MPV 9.9 7.5 - 12.5 fL [facility] ABSOLUTE NEUTROPHILS 3,588 1,500 - 7,800 cells/uL [facility] ABSOLUTE LYMPHOCYTES 2,139 850 - 3,900 cells/uL [facility] ABSOLUTE MONOCYTES 494 200 - 950 cells/uL [facility]) ABSOLUTE EOSINOPHILS 241 15 - 500 cells/uL [facility]) ABSOLUTE BASOPHILS 39 0 - 200 cells/uL [facility]) NEUTROPHILS 55.2 % [facility] LYMPHOCYTES 32.9 % [facility] MONOCYTES 7.6 % [facility] EOSINOPHILS 3.7 % [facility] BASOPHILS 0.6 % [facility]) 11/25/2023 11/25/2023 11: 55 AM CDT Nicolas Zhao MD HEMATOLOGY [facility] [address] [place] [address], [facility]) [address] [place] [address] * CYCLIC CITRULLINE PEPTIDE (11/25/2023 12:00 AM CDT) CYCLIC CITRULLINATED PEPTIDE (CCP) AB (IGG) <16 UNITS [facility] Comment: Reference Range Negative: ?<20 Weak Positive: ? 20-39 Moderate Positive: ?? 40-59 Strong Positive: ? >59 Blood BLOOD SPECIMEN / Unknown 11/25/2023 11/25/2023 11:55 AM CDT Nicolas Zhao MD SEND OUTS Performing Organization Address [facility] Co de Phone Number [employer] [facility] [address] [place] [address], [facility] [address] [place] [address] * HBSAG (HBS) (11/25/2023 12:00 AM CDT) Pathologist [facility] HEPATITIS B SURFACE ANTIGEN NON-REACTI VE NON-REACTI VE [facility] Comment: For additional information, please refer to http://education.Leevia/faq/FZZ200 (This link is being provided for informational/ educational purposes only.) Blood BLOOD SPECIMEN / Unknown 11/25/2023 11/25/2023 11:55 AM CDT Nicolas Zhao MD SEND OUTS Performing Organization Address [facility]/ZIP Co de Phone Number [employer] [facility] [address] [place] [address], [facility] [address] [place] [address] * ANTI HCV (11/25/2023 12:00 AM CDT) HEPATITIS C ANTIBODY NON-REACTI VE NON-REACT [facility] Comment: HCV antibody was non-reactive. There is no laboratory evidence of HCV infection. In most cases, no further action is required. However, if recent HCV exposure is suspected, a test for HCV RNA (test code 71419) is suggested. For additional information please refer to http://Zipments.Leevia/faq/IVX63r9 (This link is being provided for informational/ educational purposes only.) Blood BLOOD SPECIMEN / Unknown 11/25/2023 11/25/2023 11:55 AM CDT Nicolas Zhao MD SEND OUTS Performing Organization Address [facility]/ZIP Co de Phone Number [facility] [address] [place] [address], [facility] [address] [place] [address] * RA QUANTITATIVE (11/25/2023 12:00 AM CDT) RHEUMATOID FACTOR 11 <14 IU/mL [facility] Blood BLOOD SPECIMEN / Unknown 11/25/2023 11/25/2023 11:55 AM CDT Nicolas Zhao MD SEND OUTS Performing Organization Address [facility] Co de Phone Number [employer] [facility] [address] [place] [address], [facility] [address] [place] [address] * ANTI HBC (11/25/2023 12:00 AM CDT) HEPATITIS B CORE AB TOTAL NON-REACTI VE NON-REACTI VE [facility] Comment: For additional information, please refer to http://Zipments.Leevia/faq/ATD065 (This link is being provided for informational/ educational purposes only.) Blood BLOOD SPECIMEN / Unknown 11/25/2023 11/25/2023 11:55 AM CDT Nicolas Zhao MD SEND OUTS [facility] [address] [place] [address], [place] [phone] [facility] [address] [place] [address] * C-REACTIVE PROTEIN (11/25/2023 12:00 AM CDT) C-REACTIVE PROTEIN <3.0 <8.0 mg/L [facility] Blood BLOOD SPECIMEN / Unknown 11/25/2023 11/25/2023 11:55 AM CDT Nicolas Zhao MD CHEMISTRY Performing Organization Address City/[facility]/ZIP Co de Phone Number [employer] [facility] [address] [place] [address], [place] [phone] [facility] [address] [place] [address] * COMP METABOLIC PANEL (11/25/2023 12:00 AM CDT) GLUCOSE 87 65 - 99 mg/dL [facility] Comment: ? Fasting reference interval UREA NITROGEN (BUN) 17 7 - 25 mg/dL [facility] CREATININE 1.01 0.70 - 1.35 mg/dL [facility] EGFR 82 > OR = 60 mL/min/1. 73m2 [facility] BUN/CREATININE RATIO SEE NOTE: (calc) [facility] Comment: ?? Not Reported: BUN and Creatinine are within ?? reference range. ? SODIUM 138 135 - 146 mmol/L [facility] POTASSIUM 4.2 3.5 - 5.3 mmol/L [facility] CHLORIDE 103 98 - 110 mmol/L [facility] CARBON DIOXIDE 27 20 - 32 mmol/L [facility] CALCIUM 9.0 8.6 - 10.3 mg/dL [facility] PROTEIN, TOTAL 7.1 6.1 - 8.1 g/dL [facility] ALBUMIN 4.4 3.6 - 5.1 g/dL [facility] GLOBULIN 2.7 1.9 - 3.7 g/dL (calc) [facility] ALBUMIN/GLOBULIN RATIO 1.6 1.0 - 2.5 (calc) [facility] BILIRUBIN, TOTAL 0.9 0.2 - 1.2 mg/dL [facility] ALKALINE PHOSPHATASE 51 35 - 144 U/L [facility] AST 21 10 - 35 U/L [facility] ALT 17 9 - 46 U/L [facility] Blood BLOOD SPECIMEN / Unknown 11/25/2023 11/25/2023 11:55 AM CDT Nicolas Zhao MD CHEMISTRY [facility] [address] [place] [address], [facility] [address] [place] [address] * PATH TISSUE EXAM (09/24/2023 10:16 AM CDT) Only the most recent of2 resultswithin the time period is included. Case Report Pathology Report ?Case: [id number] ? Authorizing Provider: ??Unknown, Doctor ?Collected: ? 09/24/2023 1016 ? Ordering Location: ? [facility] ?Received: ?09/25/2023 0802 ? Pathologist: ? Zohra Villalta MD ? Specimen: ?Skin Lesion, Scalp Lesion ? 09/27/2023 2:22 PM CDT [facility] Final Diagnosis A) SKIN, SCALP, EXCISION: 1. 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 a. Grade: Well differentiated ?? b. Perineural invasion: Absent ?? c. Margin status: Negative ?? d. 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 09/27/2023 2:22 PM CDT [facility] Gross Description A) Received in formalin, labeled with the patient's name and scalp lesion, long-superior, short-right lateral, is a 3.7 x 3.5 cm circular perez oriented (2 sutures) skin, excised to a depth of 0.5 cm. A short stitch truong the right lateral margin (re-designate 9:00) and a long stitch truong the superior margin (re-designated 12:00). On the skin surface is a raised, circumscribed, ulcerated 2.2 x 2 x 1 cm mass, 0.7 cm from the 12:00 margin (superior), 0.8 cm from the 3:00 margin, 0.9 cm from the 6:00 margin, 0.5 cm from the 9:00 margin (right lateral), and focally less than 0.1 cm from the central deep intact smooth soft tissue margin. The margins are inked: 12 o'clock to 3 o'clock: Blue 3 o'clock to 6 o'clock: Green 6 o'clock to 9 o'clock: Red 9 o'clock to 12 o'clock: Yellow Specimen is sectioned and entirely submitted in 15 cassettes: 1-2. ??12:00 margin, perpendicular to ink (instructed to embed orange ink down) 3-4. ??Central slice 1, composite, mass 5-6. ??Central slice 2, composite, mass 7-8. ??Central slice 3, composite, mass 9-10. ??Central slice 4, composite, mass 11-12. Central slice 5, composite, mass 13. ??Central slice 6, bisected 14-15. ??6:00 margin, perpendicular to ink (instructed to embed orange ink down) The specimen was placed in formalin at 0900 on 09/24/2023. LDW 09/25/2023 09/27/2023 2:22 PM CDT [facility] Microscopic Description The final diagnosis is based on microscopic examination of appropriate sections of all specimens. 09/27/2023 2:22 PM T [facility] SYNOPTIC REPORTING CUTANEOUS SQUAMOUS CELL CARCINOMA OF THE HEAD AND NECK CUTANEOUS SQUAMOUS CELL CARCINOMA OF THE HEAD AND NECK - All Specimens 8th Edition - Protocol posted: 11/22/2021 SPECIMEN ?? Procedure: ?Excision, ellipse TUMOR ?? Tumor Focality: ?Unifocal ?? Multiple Primary Sites: ?Not applicable ?? Tumor Site: ?Scalp ?? Tumor Laterality: ?Not specified ?? Tumor Size: ?Greatest dimension (Centimeters): 2.2 cm ?? Histologic Type: ?Keratoacanthoma ?? Histologic Grade: ?G1 ?? Tumor Depth of Invasion (DOI): ?Depth in Millimeters: 4.6 mm ?? Anatomic Level: ?V (carcinoma invades subcutaneum) ?? Lymphovascular Invasion: ?Not identified ?? Perineural Invasion: ?Not identified MARGINS ?? Margin Status for Invasive Tumor: ?All margins negative for invasive tumor ? Closest Margin(s) to Invasive Tumor: ?<1 mm to deep margin ?? Margin Status for Noninvasive Tumor: ?All margins negative for in situ disease REGIONAL LYMPH NODES ?? Regional Lymph Node Status: ?Not applicable (no regional lymph nodes submitted or found) PATHOLOGIC STAGE CLASSIFICATION (pTNM, AJCC 8th Edition) ?? Reporting of pT, pN, and (when applicable) pM categories is based on information available to the pathologist at the time the report is issued. As per the AJCC (Chapter 1, 8th Ed.) it is the managing physician's responsibility to establish the final pathologic stage based upon all pertinent information, including but potentially not limited to this pathology report. ?? pT Category: ?pT2 ?? pN Category: ?pN not assigned (no nodes submitted or found) ?? [facility] ([facility]) Tumor Classification System: ? High-risk Factors: ?Tumor diameter greater than or equal to 2 cm ? [facility] Tumor Classification: ?T2a ADDITIONAL FINDINGS ?? Additional Findings: ?None identified 09/27/2023 2:22 PM CDT [facility] ENTRAL LABORATORY Additional Information Interpreted at [facility], Central Laboratory - [address] [address] 09/27/2023 2:22 PM CDT [facility] ENTRDE LAB[facility]ATORY Other (Skin Lesion) 09/24/2023 10:16 AM CDT 09/25/2023 8:02 AM CDT Doctor Unknown PATHOLOGY/[facility]OLOGY [facility] [address] [place] [address], * LAB TRACKING EVENT (09/24/2023 9:00 AM CDT) Other (Other) Client Collect / Unknown 09/24/2023 9:00 AM CDT 09/24/2023 10:16 PM CDT Doctor Unknown LAB BILL ONLY [facility] [address] [place] [address], [place] * SCAN-OPERATIVE/PROCEDURE REPORT (09/24/2023 12:00 AM CDT) Scanner OTHER * HEMOGLOBIN (09/20/2023 9:42 AM CDT) HEMOGLOBIN 14.7 13.5 - 17.5 g/dL 09/20/2023 9:46 AM CDT [facility] MCV 88 80 - 100 fL 09/20/2023 9:46 AM CDT [facility] Blood BLOOD SPECIMEN / Unknown Venipuncture / Unknown 09/20/2023 9:42 AM CDT 09/20/2023 9:43 AM CDT Alicia ELLIS HEMATOLOGY Performing Organization Address City/[facility]/ZIP Co de Phone Number [facility] [address] [place] [address], * (ABNORMAL) BASIC METABOLIC PANEL (09/20/2023 9:42 AM CDT) SODIUM 141 136 - 145 mmol/L 09/20/2023 3:50 PM CDT [facility] POTASSIUM 4.8 3.5 - 5.1 mmol/L 09/20/2023 3:50 PM CDT [facility] CHLORIDE 104 98 - 107 mmol/L 09/20/2023 3:50 PM CDT [facility] CO2,TOTAL 28 22 - 29 mmol/L 09/20/2023 3:50 PM CDT [facility] ANION GAP 9 5 - 18 09/20/2023 3:50 PM CDT [facility] GLUCOSE 93 70 - 99 mg/dL 09/20/2023 3:50 PM CDT [facility] CALCIUM 8.8 8.8 - 10.2 mg/dL 09/20/2023 3:50 PM CDT [facility] BUN 14 8 - 23 mg/dL 09/20/2023 3:50 PM CDT [facility] CREATININE 1.01 0.70 - 1.20 mg/dL 09/20/2023 3:50 PM CDT [facility] BUN/CREAT RATIO 14 10 - 20 4 3:50 PM CDT [facility] eGFR 82(L) >90 mL/min/1.7 3m2 09/20/2023 3:50 PM CDT [facility] Comment:As of 2021, eG FR is calculated by the CKD-EPI creatinine equation without race adjustment. ??eGFR can be influenced by muscle mass, exercise, and diet. ??The reported eGFR is an estimation only and is only applicable if the renal function is stable. Blood BLOOD SPECIMEN / Unknown Venipuncture / Unknown 09/20/2023 9:42 AM CDT 09/20/2023 9:43 AM CDT Alicia ELLIS CHEMISTRY [facility] [address] [place] [address], * LIPID PANEL W REFLEX MEASURED LDL (05/16/2023 4:21 PM CDT) CHOLESTEROL,TOTAL 155 100 - 199 mg/dL 05/17/2023 2:57 PM CDT [facility] Comment: Cholesterol, Total Reference Ranges Desirable <200 mg/dL Borderline 200-239 mg/dL High >=240 mg/dL TRIGLYCERIDES 57 <150 mg/dL 05/17/2023 2:57 PM CDT [facility] HDL CHOLESTEROL 71 >40 mg/dL 4 2:57 PM CDT [facility] NON-HDL CHOLESTEROL 84 <145 mg/dl 05/17/2023 2:57 PM CDT [facility] CHOL/HDL RATIO 2.18 <4.50 05/17/2023 2:57 PM CDT [facility] LDL CHOLESTEROL 73 <=130 mg/dL 05/17/2023 2:57 PM CDT [facility] VLDL CHOLESTEROL 11 <=30 mg/dL 05/17/2023 2:57 PM CDT [facility] PROVIDER ORDERED STATUS RANDOM 05/17/2023 2:57 PM CDT [facility] TRAL LABORATORY Blood BLOOD SPECIMEN / Unknown Venipuncture / Unknown 05/16/2023 4:21 PM CDT 05/16/2023 4:22 PM CDT Saad Hernandez MD CHEMISTRY [facility] [address] [place] [id number], from Last 3 Months or Most Recently Relevant to Health Maintenance Care Teams Slot Tag Inserter Relationship Specialty Start Date End Date StuarttelSaad MD [address] [place] [address] PCP - General Family Practice 08/01/23
--- NOTE | 2023-11-29 12:39 | W.ANESCHARGE ---
Anesthesia Charges Start Date/Time Anesthesia Start Date: 11/29/23 Anesthesia Start Time: 12:55 Stop Date/Time Anesthesia Stop Date: 11/29/23 Anesthesia Stop Time: 13:25
--- NOTE | 2023-11-29 13:28 | W.ANESCHARGE ---
Anesthesia Charges Start Date/Time Anesthesia Start Date: 11/29/23 Anesthesia Start Time: 12:55 Stop Date/Time Anesthesia Stop Date: 11/29/23 Anesthesia Stop Time: 13:25
== END 2023-11-29 11:40 | disposition home or self-care (01) ==
LOC: OP CLINIC 11:40
PROVIDERS: PCP Family Medicine; Visit Provider Internal Medicine Gastroenterology
DX: Z12.11 Encounter for screening for malignant neoplasm of colon (principal)
CPT/HCPCS: 00811; 00812; 45378; J2704